=== PATIENT | male | born 1965 | race Caucasian/White ===

== ENCOUNTER 2018-04-08 16:49 | Emergency (ER) | payer MEDICAID ==
[2018-04-08] MEDS ORDERED: NITROGLYCERIN 2% PASTE TOP STA (17:18)
[2018-04-08] MEDS ORDERED: ASPIRIN CHEW 81 MG TABLET PO STA (17:18)
--- NOTE | 2018-04-08 17:20 | ED Physician Documentation ---
PD HPI CHEST PAIN - Stated complaint Stated Complaint: CHEST PX - Chief complaint Chief Complaint: Cardiac - History obtained from History obtained from: Patient - History of Present Illness Timing - onset: Today (52yom with chronic hypertension, also some PTSD. Started propranolol on Friday. Today at 2:00 after eating a salad he developed left-sided substernal chest pressure radiating to the left jaw without back pain or shortness of breath. He never had this before.) Review of Systems Ten Systems: 10 systems reviewed and negative Constitutional: denies: Fever, Chills, Fatigue Cardiac: denies: Palpitations, Pedal edema, Calf pain Respiratory: denies: Hemoptysis, Wheezing GI: denies: Abdominal Pain, Nausea PD PAST MEDICAL HISTORY - Past Medical History Past Medical History: Yes Cardiovascular: Hypertension Musculoskeletal: Chronic back pain - Present Medications Home Medications: Ambulatory Orders Medication Instructions Recorded Confirmed Losartan Potassium 50 mg PO 04/08/18 Propranolol ER [Inderal LA] 60 mg 04/08/18 amLODIPine [Norvasc] 5 mg 04/08/18 - Allergies Allergies/Adverse Reactions: Allergies Allergy/AdvReac Type Severity Reaction Status Date / Time No Known Drug Allergies Allergy Verified 04/08/18 18:20 - Living Situation Living Situation: reports: Alone - Social History Does the pt drink ETOH?: No Does the pt have substance abuse?: No - Family History Family history: reports: Non contributory PD ED PE NORMAL - Vitals Vital signs reviewed: Yes - General General: Alert and oriented X 3, No acute distress - HEENT HEENT: PERRL, EOMI - Neck Neck: Supple, no meningeal sign, No bony TTP - Cardiac Cardiac: RRR, No murmur, Strong equal pulses (radial B) - Respiratory Respiratory: No respiratory distress, Clear bilaterally - Abdomen Abdomen: Non tender - Back Back: No CVA TTP, No spinal TTP - Derm Derm: Normal color, Warm and dry - Extremities Extremities: No tenderness to palpate, No edema, No calf tenderness / cord - Neuro Neuro: Alert and oriented X 3 - Psych Psych: Normal mood, Normal affect Results - Vitals Vitals: Vital Signs - 24 hr 04/08/18 04/08/18 04/08/18 16:54 17:15 18:00 Temperature 36.8 C Heart Rate 86 78 41 L Respiratory 22 13 16 Rate Blood Pressure 152/112 H 158/111 H 89/68 L Blood Pressure 158/111 H [Left] O2 Saturation 99 98 97 04/08/18 04/08/18 04/08/18 18:06 18:15 18:34 Temperature Heart Rate 61 72 74 Respiratory 16 15 13 Rate Blood Pressure 110/78 132/93 H 139/102 H Blood Pressure [Left] O2 Saturation 100 100 100 04/08/18 04/08/18 19:21 19:32 Temperature 36.3 C L Heart Rate 87 85 Respiratory 16 19 Rate Blood Pressure 141/103 H 135/88 H Blood Pressure [Left] O2 Saturation 99 100 Oxygen O2 Source Room air - EKG (time done) 1703 Rate: Rate (enter#) (79) Rhythm: NSR [place]: Normal Intervals: Normal [place] QRS: Normal Ischemia: Normal ST segments Compare to prior EKG: Old EKG unavailable 180 Rate: Rate (enter#) (70) Rhythm: NSR [place]: Normal Intervals: Normal [place] QRS: Normal Ischemia: Other (Compared with EKG done an hour earlier, now he seems to have pseudonormalization of the the slightly inverted inferior T waves and has a little more prominent anterior ST segment elevation but still not diagnostic for STEMI.) Compare to prior EKG: Changed from prior EKG 1930 Rate: Rate (enter#) (82) Rhythm: NSR [place]: Normal Intervals: Normal [place] QRS: Normal Ischemia: Normal ST segments Compare to prior EKG: Unchanged from prior EKG - Labs Labs: Laboratory Tests 04/08/18 04/08/18 04/08/18 17:37 17:37 17:37 WBC 11.7 H RBC 5.64 Hgb 15.8 Hct 46.9 MCV 83.0 MCH 28.0 MCHC 33.8 RDW 13.9 Plt Count 345 MPV 6.7 L Neut # (Auto) 7.0 H Lymph # (Auto) 3.5 [place] # (Auto) 1.0 Eos # (Auto) 0.1 Baso # (Auto) 0.1 Absolute Nucleated RBC 0.00 Nucleated RBC % 0.0 Sodium 130 L Potassium 3.9 Chloride 98 L Carbon Dioxide 24 Anion Gap 8.0 BUN 13 Creatinine 1.0 Estimated GFR (MDRD) 79 L Glucose 98 Calcium 9.8 Total Bilirubin 0.7 AST 21 ALT 29 Alkaline Phosphatase 69 Troponin I < 0.04 Total Protein 8.1 Albumin 4.5 Globulin 3.6 Albumin/Globulin Ratio 1.3 Lipase 29 04/08/18 18:21 WBC RBC Hgb Hct MCV MCH MCHC RDW Plt Count MPV Neut # (Auto) Lymph # (Auto) [place] # (Auto) Eos # (Auto) Baso # (Auto) Absolute Nucleated RBC Nucleated RBC % Sodium Potassium Chloride Carbon Dioxide Anion Gap BUN Creatinine Estimated GFR (MDRD) Glucose Calcium Total Bilirubin AST ALT Alkaline Phosphatase Troponin I < 0.04 Total Protein Albumin Globulin Albumin/Globulin Ratio Lipase - Rads (name of study) 1v chest Radiology: EMP read contemporaneously (normal) PD MEDICAL DECISION MAKING - ED course ED course: 52-year-old gentleman with few hours worth of chest pain, he just started propranolol a few days ago but I am not sure this is relevant. His initial EKG looked pretty nonischemic, I was called back into the room at around 6 PM, he was having increasing chest pain and had bouts of hypotension, the Nitropaste had not yet been started. At that time he looked certainly more ill than he had on my initial A second EKG was done with results as shown, he is having some subtle dynamic changes, [facility] was called for consultation and possible transfer at that time but they were full so then we called [facility]. I discussed the case there with Dr. Waldron who agrees he should probably be transferred, however they were also full and they could not accommodate him in the [employer] [facility] tomorrow so around 620 [facility] was called for potential transfer. I spoke with Dr. Reza at [facility], the ultrasound supervisor there who would like to see the EKGs. They were Deidentified and texted to him at his request.He called me back and accepted the patient in transfer. [place] were completed. - Sepsis Event Vital Signs: Vital Signs - 24 hr 04/08/18 04/08/18 04/08/18 16:54 17:15 18:00 Temperature 36.8 C Heart Rate 86 78 41 L Respiratory 22 13 16 Rate Blood Pressure 152/112 H 158/111 H 89/68 L Blood Pressure 158/111 H [Left] O2 Saturation 99 98 97 04/08/18 04/08/18 04/08/18 18:06 18:15 18:34 Temperature Heart Rate 61 72 74 Respiratory 16 15 13 Rate Blood Pressure 110/78 132/93 H 139/102 H Blood Pressure [Left] O2 Saturation 100 100 100 04/08/18 04/08/18 19:21 19:32 Temperature 36.3 C L Heart Rate 87 85 Respiratory 16 19 Rate Blood Pressure 141/103 H 135/88 H Blood Pressure [Left] O2 Saturation 99 100 Oxygen O2 Source Room air Departure - Departure Disposition: 02 Transfer Acute Care Hosp Clinical Impression: Unstable angina Condition: Serious Discharge Date/Time: 04/08/18 19:32
[2018-04-08 17:53] LABS: BASOPHILS # (AUTO) 0.1 10^3/uL (0.0-0.1); BASOPHILS % (AUTO) 0.8 %; EOSINOPHILS # (AUTO) 0.1 10^3/uL (0.0-0.7); EOSINOPHILS % (AUTO) 0.8 %; HGB - HEMOGLOBIN 15.8 g/dL (14.0-18.0); LYMPHOCYTES # (AUTO) 3.5 10^3/uL (1.5-3.5); MEAN CORPUSCULAR HGB CONC 33.8 g/dL (32.0-36.0); MEAN PLATELET VOLUME 6.7 fL (7.4-11.4); MONOCYTES % (AUTO) 8.7 %; NEUTROPHILS % (AUTO) 59.7 %; PLT - PLATELET COUNT 345 10^3/uL (130-450); RED BLOOD COUNT 5.64 10^6/uL (4.70-6.10); RED CELL DISTRIBUTION WIDTH 13.9 % (12.0-15.0); WHITE BLOOD COUNT 11.7 x10^3/uL (4.8-10.8)
--- NOTE | 2018-04-08 17:58 | XRAY Report ---
Procedure Date: 04/08/2018 Accession Number: [id number] / [id number] Procedure: XR - Chest 1 View X-Ray CPT Code: 09472 FULL RESULT: EXAM: CHEST RADIOGRAPHY EXAM DATE: 04/08/2018 05:31 PM. CLINICAL HISTORY: Chest pain. COMPARISON: None. TECHNIQUE: 1 view. FINDINGS: Lungs/Pleura: No dense consolidation. No large effusion or pneumothorax. No pulmonary edema. Mediastinum: Heart and mediastinal contours are unremarkable. Other: None. IMPRESSION: No acute radiographic pulmonary abnormalities. [facility]
[2018-04-08 18:05] LABS: ALBUMIN 4.5 g/dL (3.2-5.5); ALBUMIN/GLOBULIN RATIO 1.3 (1.0-2.2); BILIRUBIN,TOTAL 0.7 mg/dL (0.2-1.0); CALCIUM 9.8 mg/dL (8.5-10.3); TOTAL PROTEIN 8.1 g/dL (6.7-8.2)
[2018-04-08] MEDS ORDERED: HEPARIN 25000UNITS/500ML (D5W) 25,000 UNIT/500 ML BAG IV STA (18:16)
[2018-04-08] MEDS ORDERED: HEPARIN 5,000 UNIT/ML VIAL IVP STA (18:16)
[2018-04-08] MEDS ORDERED: SODIUM CHLORIDE 0.9% 1,000 ML IV ONE (19:28)
[2018-04-08 19:46] VITALS: BP 135/88
== END 2018-04-08 19:32 | disposition short-term general hospital (02) ==
LOC: ED 16:49
DX: I20.0 Unstable angina (principal); I10 Essential (primary) hypertension
CPT/HCPCS: 36415; 71045; 80053; 83690; 84484; 85025; 93005; 96365; 96376; 99284; 99285; A9270

== ENCOUNTER 2018-04-08 19:40 | Outpatient (CLI) | payer MEDICAID | END 2018-04-08 19:41 | disposition short-term general hospital (02) | LOC: EMS 19:40 | PROVIDERS: ATTEND Surgery | DX: R07.9 Chest pain, unspecified (principal) | CPT/HCPCS: A0425; A0426 ==